=== PATIENT | female | born 1980 | race Hispanic/Latino ===

== ENCOUNTER 2019-09-17 12:52 | Emergency (ER) | payer OTHER, SELFPAY ==
[2019-09-17 12:55] VITALS: BP 115/75; PULSE 72; RESP 18; TEMP 36.9; O2SAT 100; BMI 21.9
--- NOTE | 2019-09-17 17:38 | ED.EAR ---
HPI - Ear Problem <DAVID Price - Last Filed: 09/17/19 17:43> General Chief complaint: Ear Stated complaint: Left Ear Pain Time Seen by Provider: 09/17/19 13:50 Source: patient and family Mode of arrival: Ambulatory Limitations: no limitations History of Present Illness HPI Narrative: The patient is a 39-year-old female nonsmoker who presents with her for chief complaint of left ear pain. She states that has been hurting on and off for the past several months. It got worse over the past week. She saw her primary care provider who made a referral to ENT. She has a history of ear infections and tube placement. Her ENT appointment as the 13th of this month. She has tried some Tylenol and Motrin with no success. She denies any fevers nausea vomiting diarrhea or right ear pain. She states it got worse after swimming. She states she does not feel like she has an infection. She states she keeps trying to pop her ears to see if that helps. Related Data Previous Rx's Medication Instructions Recorded ketorolac 10 mg PO TID PRN #14 tab 09/17/19 Allergies Allergy/AdvReac Type Severity Reaction Status Date / Time No Known Drug Allergies Allergy Verified 09/17/19 13:02 Review of Systems <ANABELLE Price - Last Filed: 09/17/19 17:43> Review of Systems Narrative: GENERAL: Denies chills, fatigue, malaise, fever, sweats. HEENT: See HPI RESPIRATORY: Denies dyspnea, cough, wheezing, hemoptysis, sputum. CARDIOVASCULAR: Denies chest pain, palpitations, orthopnea, edema, GASTROINTESTINAL: Denies nausea, vomiting, abdominal pain, diarrhea, constipation, melena. : Denies dysuria, frequency, incontinence, hematuria, urinary retention. MUSCULOSKELETAL: denies weakness, joint pain, or bony pain SKIN: Denies rash, skin lesions, or other NEUROLOGIC: Denies weakness, headache, numbness, change in speech, confusion, seizures, incoordination. PSYCHIATRIC: No concerning psychosocial issues. 12 point review of systems is negative except for those stated above Patient History <DAVID Price - Last Filed: 09/17/19 17:43> Social History Smoking Status: Never smoker alcohol intake frequency: holidays/special occasions only Substance Use Type: does not use Exam <ANABELLE Price - Last Filed: 09/17/19 17:43> Narrative Exam Narrative: GENERAL: This is a well-nourished, well-developed patient no acute distress HEAD: Atraumatic. Normocephalic. No temporal or scalp tenderness. EYES: Pupils equal round and reactive. Extraocular motions intact. No scleral icterus. No injection or drainage. ENT: Nose without bleeding, purulent drainage or septal hematoma. Throat without erythema, tonsillar hypertrophy or exudate. Uvula midline. Airway patent. Bilateral TMs pearly brewster. Perforated TM noted left side. Bilateral ear canals noted to be within normal limits NECK: Trachea midline. No JVD or lymphadenopathy. Supple, nontender, no meningeal signs. CARDIOVASCULAR: Regular rate and rhythm RESPIRATORY: no cough. No increased respiratory effort. No accessory muscle use. EXTREMITIES: No clubbing, cyanosis, or edema. No joint tenderness, effusion, or edema noted. BACK: Nontender without deformity or crepitance. No flank tenderness. NEURO: AOx3. SKIN: No rash or erythema. Initial Vital Signs Initial Vital Signs: Vital Signs Temperature 98.4 F 09/17/19 12:55 Pulse Rate 72 09/17/19 12:55 Respiratory Rate 18 09/17/19 12:55 Blood Pressure 115/75 09/17/19 12:55 Pulse Oximetry 100 09/17/19 12:55 <Lisa Brito MD - Last Filed: 09/18/19 07:52> Initial Vital Signs Initial Vital Signs: Vital Signs Temperature 98.4 F 09/17/19 12:55 Pulse Rate 72 09/17/19 12:55 Respiratory Rate 18 09/17/19 12:55 Blood Pressure 115/75 09/17/19 12:55 Pulse Oximetry 100 09/17/19 12:55 Course <ANABELLE Price - Last Filed: 09/17/19 17:43> Vital Signs Vital signs: Vital Signs - 8 hr 09/17/19 12:55 Temperature 98.4 F Pulse Rate 72 Respiratory Rate 18 Blood Pressure 115/75 Pulse Oximetry 100 <Lisa Brito MD - Last Filed: 09/18/19 07:52> Vital Signs Vital signs: Vital Signs - 8 hr 09/17/19 12:55 Temperature 98.4 F Pulse Rate 72 Respiratory Rate 18 Blood Pressure 115/75 Pulse Oximetry 100 Medical Decision Making <Gerri Hardin, PIPELINE DISPATCH OPERATOR-BC - Last Filed: 09/17/19 17:43> [facility] Narrative Medical decision making narrative: The patient is a 39-year-old female presents with a chief complaint of ear pain. She has a pending appointment with ENT on the of this month and has seen her primary care provider for this. She has no evidence of infection, but does have evidence of TM perforation on the left side on exam. I discussed at length measures to use to help decrease the ?pressure including Sudafed, Flonase, Neti pot. I did give her prescription of Toradol, with strict instructions to not combine with any other NSAIDs such as Aleve or ibuprofen. Patient states understanding. She has no questions or concerns regarding return precautions of any acute concerns, follow-up recommendations of PCP and ENT as scheduled, and has no questions or concerns upon discharge. Discharge Plan Departure Patient Disposition: Home Clinical Impression: Tympanic membrane perforation Qualifiers: Laterality: left Qualified Code(s): H72.92 - Unspecified perforation of tympanic membrane, left ear Discharge Date/Time: 09/17/19 14:44 Instructions: DI for Tympanic Membrane Perforation-Adult Activity Restrictions/Additional Instructions: Your exam indicates a ruptured tympanic membrane, likely due to swimming and pressure changes. There are no indications of infection at this time. I sent a prescription of Toradol to [facility] in [place]. I have given you a prescription of Toradol. This is an NSAID. Do not combine it with other NSAIDs such as Aleve or ibuprofen. I suggest taking it with some food, as it can irritate your stomach. Please follow up with ENT as previously scheduled. He can always try Sudafed, Flonase, Neti pot and in order to help decrease the pressure in your head Prescriptions: New ketorolac 10 mg tablet 10 mg PO TID PRN (Reason: pain) Qty: 14 RF: 0 Referrals: Ayush Duckworth PA-C [Primary Care Provider] -
== END 2019-09-17 14:44 | disposition home or self-care (01) ==
PROVIDERS: Emergency Provider Nurse Practitioner Family; PCP Physician Assistant
DX: H72.92 Unspecified perforation of tympanic membrane, left ear (principal)
CPT/HCPCS: 99282

== ENCOUNTER → 2019-12-12 15:38 | Outpatient (CLI) | payer OTHER, SELFPAY ==
--- NOTE | 2019-12-12 15:41 | DI.MRI.S_ITS ---
PROCEDURE: MR LUMBAR SPINE WO CON INDICATIONS: RADICULOPATHY, LUMBAR REGION TECHNIQUE: Noncontrast sagittal T1 spin echo and T2 fast echo, sagittal STIR, axial T1 and T2 fast spin echo through the lumbar spine. In cases with scoliosis, additional coronal T2 fast spin echo may be performed. COMPARISON: None. FINDINGS: Image quality: Excellent. Alignment and Curvature: There is normal bony alignment. Bone Marrow: Marrow is of normal overall signal. No acute vertebral body compression fractures. Spinal Cord: Conus medullaris terminates at the L1 level. Visualized cord demonstrates normal signal and size. Paraspinous Soft Tissues: No paravertebral masses. T12-L1: Normal appearance. L1-L2: Normal appearance. L2-L3: The disc height is well-preserved. Loss of disc signal is seen at this level. No significant neural foraminal or central canal narrowing can be seen. L3-L4: Normal appearance. L4-L5: No significant disc pathology is seen. Moderate facet joint hypertrophy is seen. No significant neural foraminal or central canal narrowing can be seen. L5-S1: The disc height is well-preserved. Loss of disc signal is seen at this level. There is a focal annular fissure seen posteriorly, as on series 3 image 10. Minimal disc bulge is seen. [id number] facet hypertrophy is seen, right worse than left. There is mild left-sided and no right-sided neural foraminal narrowing seen. No central canal narrowing is seen. IMPRESSION: Multiple levels of lumbar spine degenerative change are seen, including an annular fissure posteriorly at the L5-S1 level. Dictated by: Thony Singh M.D. on 12/12/2019 at 21:02 Approved by: Thony Singh M.D. on 12/12/2019 at 21:05
== END ==
PROVIDERS: PCP Physician Assistant; Visit Provider Physician Assistant Surgical
DX: M47.26 Other spondylosis with radiculopathy, lumbar region (principal); M47.27 Other spondylosis with radiculopathy, lumbosacral region
CPT/HCPCS: 72148